=== PATIENT | female | born 1950 | race Caucasian/White ===

== ENCOUNTER 2019-05-12 19:14 | Emergency (ER) | payer OTHER ==
[2019-05-12] MEDS ORDERED: TETRACAINE 0.5% OPTH 5 ML BOTTLE ONE (19:45)
[2019-05-12] MEDS ORDERED: DIPH,PERTUSS(ACELL),TET VAC/PF 0.5 ML DISP.SYRIN IM ONE (19:45)
[2019-05-12] MEDS ORDERED: FLUORESCEIN SODIUM 1 STRIP TEST ONE (19:45)
== END 2019-05-12 20:00 ==
LOC: ED 19:14
DX: H57.89 Other specified disorders of eye and adnexa (principal)
CPT/HCPCS: 90715; 99282

== ENCOUNTER 2019-06-12 14:00 | Emergency (ER) | payer OTHER ==
--- NOTE | 2019-06-12 14:21 | ED Physician Documentation ---
Upper Extremity Problem - HISTORIAN Historian: patient - HPI Stated Complaint: neck pain and left arm, left back, left leg (chronic) Chief Complaint: General Adult Onset: other (chonic ) Recent Injury: No Where: home Severity: severe (05/10) Associated Symptoms: denies: fever, chills, sweating, shortness of breath, difficulty breathing, chest pain Exacerbated By: nothing Relieved By: nothing Quality: pain Further Comments: yes (she reports in 2010 she was in a work accident and she has been dealing with workmans comp on this arm/neck/back pain she is currenty not under treatment due to they are not paying and she is currently arguing with this company) - ROS CONST: no problems EYES/ENT: none CVS/RESP: none GI/: none MS/SKIN/LYMPH: joint pain NEURO/PSYCH: anxiety - PAST HX Past History: cervical disc disease Home Medications: Ambulatory Orders Medication Instructions Recorded Clonidine HCl [Catapres] 0.1 mg PO HS 06/12/19 Fluoxetine HCl [Prozac] 30 mg PO DAILY 06/12/19 Levothyroxine Sodium [Synthroid] 100 mcg PO DAILY 06/12/19 Methocarbamol [Robaxin-750] 750 mg PO BID 06/12/19 clonazePAM [Klonopin] 0.5 mg PO QID 06/12/19 - SOCIAL HX Smoking History: cigarettes Alcohol Use: occasionally Drug Use: marijuana - FAMILY HX Family History: none - REVIEWED ASSESSMENTS Nursing Assessment Reviewed: Yes Vitals Reviewed: Yes ED Results Lab/Radiology - Orders Orders: ED Orders Category Date Time Status UDS [DRUG SCREEN URINE MEDICAL ONLY] Routine Lab 06/12/19 Ordered Orphenadrine Citrate [Norflex] Med 06/12/19 15:04 Once 60 mg IM NOW ONE Upper Extremity Problem - EXAM General Appearance: no acute distress, alert Skin: warm/dry, normal color Shoulder Exam: normal inspection, non-tender, no evidence of injury, normal ROM Elbow/Forearm Exam: normal inspection, non-tender, no evidence of injury, normal ROM Wrist Exam: normal inspection, non-tender, no evidence of injury, normal ROM Hand Exam: normal inspection, non-tender, no evidence of injury, normal ROM EENT: eye inspection normal, ENT inspection normal, no signs of dehydration CVS: reg rate & rhythm, heart sounds normal, equal pulses, no murmur Vascular: no vascular compromise Peripheral: sensation nml, motor nml Central: oriented X3, CN's nml as tested, motor nml, sensation nml, mood/affect nml, cognition normal Respiratory: no resp. distress, breath sounds nml Abdomen: non-tender Discharge Clincal Impression: Neck pain, chronic Referrals: Primary Doctor,No [Primary Care Provider] - 2 Days Comments: She is dealing with her workman's comp for pain management referral DG Condition: Stable Disposition: 01 HOME, SELF-CARE Decision to Admit: NO Date of Decison to Admit: 06/12/19 Decision Time: 15:06
[2019-06-12] MEDS: ORPHENADRINE CITRATE 60 MG/2 ML ML IM ONE (15:08)
[2019-06-12 16:03] VITALS: BP 118/61
[2019-06-12 17:25] LABS: CANNABINOIDS NEGATIVE ng/mL (< 50); METHYLENEDIOXYMETHAMPHETAMINE NEGATIVE ng/mL (<500)
== END 2019-06-12 15:22 | disposition home or self-care (01) ==
LOC: ED 14:00
DX: G89.29 Other chronic pain (principal); M54.2 Cervicalgia
CPT/HCPCS: 80377; 96372; 99282; 99284; G0481; J2360

== ENCOUNTER 2019-06-17 13:04 | Emergency (ER) | payer OTHER ==
--- NOTE | 2019-06-17 13:39 | ED Physician Documentation ---
General Adult - HISTORIAN Historian: patient - HPI Stated Complaint: acute/chronic L sided neck/arm pain Chief Complaint: General Adult Timing: worse Severity: moderate Further Comments: yes (Pt is a 68 yo female with chronic L-sided neck pain, L arm pain, numbness after a workplace accident in 2010 when a several hundred pound object fell on her. Pt is rx'd Nabumatone 750 mg and Robaxin 750 mg. She took last doses at 3 am today.) - ROS CONST: no problems EYES/ENT: none CVS/RESP: none GI/: none MS/SKIN/LYMPH: other (L-sided neck/arm pain) - PAST HX Past History: other (anxiety/depression; chronic pain; thyroid d/o; ) Surgeries/Procedures: other (hysterectomy & oophorectomy; c-3 repair; R knee; R elbow; L trigger finger; ortho surg.) Allergies/Adverse Reactions: Allergies Allergy/AdvReac Type Severity Reaction Status Date / Time gabapentin Allergy Verified 06/12/19 15:05 Penicillins Allergy Verified 06/12/19 15:05 duloxetine [From Cymbalta] AdvReac Hallucinati Verified 06/12/19 15:05 ons lorazepam [From Ativan] AdvReac No Reaction Verified 06/17/19 13:21 steroids Allergy Rash Uncoded 06/17/19 13:21 Home Medications: Ambulatory Orders Medication Instructions Recorded Clonidine HCl [Catapres] 0.3 mg PO HS 06/12/19 Fluoxetine HCl [Prozac] 30 mg PO DAILY 06/12/19 Levothyroxine Sodium [Synthroid] 100 mcg PO DAILY 06/12/19 Nabumetone [Relafen] 750 mg PO BID 06/12/19 clonazePAM [Klonopin] 0.5 mg PO 5XDAY 06/12/19 Cyclobenzaprine HCl [Flexeril] 10 mg PO TID PRN 06/17/19 Naproxen Sodium [All Day Relief] 440 mg PO Q6H 06/17/19 - SOCIAL HX Smoking History: cigarettes - FAMILY HX Family History: No - VITAL SIGNS Vital Signs: Vital Signs Temp Pulse Resp BP Pulse Ox 118/61 06/12/19 15:59 - REVIEWED ASSESSMENTS Nursing Assessment Reviewed: Yes Vitals Reviewed: Yes Progress - Results/Orders Results/Orders: diazepam 5 mg IM some improvement ED Results Lab/Radiology - Orders Orders: ED Orders Category Date Time Status diazePAM [Valium] Med 06/17/19 13:35 Once 5 mg IM NOW ONE General Adult Physical Exam - PHYSICAL EXAM GENERAL APPEARANCE: mild distress EENT: pharynx normal NECK: normal inspection, supple, other (muscle spasm L neck) ABDOMEN: soft, no organomegaly, normal bowel sounds BACK: normal inspection, no CVA tenderness SKIN: warm/dry, normal color EXTREMITIES: non-tender, normal range of motion, no evidence of injury NEURO: oriented X3, motor nml, sensation nml Discharge Clincal Impression: musculoskeletal pain, muscle spasm Referrals: Primary Doctor,No [Primary Care Provider] - Condition: Stable Disposition: 01 HOME, SELF-CARE Decision to Admit: NO Decision Time: 14:32
[2019-06-17 14:50] VITALS: BP 112/64
== END 2019-06-17 14:38 | disposition home or self-care (01) ==
LOC: ED 13:04
DX: M62.838 Other muscle spasm (principal)
CPT/HCPCS: 96372; 99282; 99284; J3360

== ENCOUNTER 2019-06-22 09:29 | Outpatient (CLI) | payer OTHER ==
--- NOTE | 2019-06-22 19:45 | Diagnostic Imaging Report ---
PATIENT MR#: [id number] PATIENT PATIENT NAME: LAQUITA WHITE DATE OF : 1950 REFERRING PHYSICIAN: Ginny Kelley EXAM DATE: 06/22/2019 ACCESSION NUMBER: [id number] EXAM DESCRIPTION: ELBOW 2 VIEWS CLINICAL HISTORY: PAIN IN LEFT ELBOW X3 WEEKS COMPARISON: No study for comparison is available at the time of interpretation. TECHNIQUE: DX left elbow, 2 views Osseous structures: The osseous structures are normal with no evidence of fracture or dislocation. Th ere is no osseous lesion or periosteal reaction. Joint spaces: The bones are well aligned. No articular surface abnormality is noted. Soft tissues: There is normal appearance of the soft tissues with no radiopaque foreign body seen. IMPRESSION: Normal left elbow radiographs. Read by: Dr. Jovani Mccarty Transcribed by: Jovani Mccarty Transcribed Date: 06/22/2019 7:44:13 PM Electronically signed by: Dr. Jovani Mccarty Date signed: 06/22/2019 7:44:13 PM
--- NOTE | 2019-06-22 19:48 | Diagnostic Imaging Report ---
PATIENT MR#: [id number] PATIENT PATIENT NAME: LAQUITA WHITE DATE OF : 1950 REFERRING PHYSICIAN: Ginny Kelley EXAM DATE: 06/22/2019 ACCESSION NUMBER: [id number] EXAM DESCRIPTION: SHOULDER 2 VIEWS OR MORE CLINICAL HISTORY: PAIN IN LEFT SHOULDER X3 WEEKS. COMPARISON: No study for comparison is available at the time of interpretation. TECHNIQUE: DX left shoulder, 3 views Osseous structures: The osseous structures are normal with no evidence of fracture or dislocation. Th ere is no osseous lesion or periosteal reaction. Joint spaces: The bones are well aligned. There are moderate degenerative changes of the glenohumeral articulation, with subcortical cyst formation of the inferior glenoid. Mild AC joint arthrosis. Soft tissues: There is normal appearance of the soft tissues with no radiopaque foreign body seen. IMPRESSION: 1. Degenerative changes of the inferior glenohumeral joint, with subcortical cyst formation. 2. Mild AC joint arthrosis. Read by: Dr. Jovani Mccarty Transcribed by: Jovani Mccarty Transcribed Date: 06/22/2019 7:47:46 PM Electronically signed by: Dr. Jovani Mccarty Date signed: 06/22/2019 7:47:46 PM
--- NOTE | 2019-06-22 20:16 | Diagnostic Imaging Report ---
PATIENT MR#: [id number] PATIENT PATIENT NAME: LAQUITA WHITE DATE OF : 1950 REFERRING PHYSICIAN: Ginny Kelley EXAM DATE: 06/22/2019 ACCESSION NUMBER: [id number] EXAM DESCRIPTION: C SPINE 2 OR 3 VIEWS HISTORY: NECK PAIN X3 WEEKS, PT STATES NO RECENT INJURY, PT STATES HX OF OLD NECK INJURY COMPARISON: No relevant comparison is available at the time of interpretation. C-SPINE XRAY, 4 views: Vertebral bodies: C3-4 ACDF with intact hardware. C4-5 decompression laminectomy. No compression defo rmities. The dens is intact and the lateral masses are symmetric. Disc spaces: C3-4 interbody fusion. C5-6 and C6-7 moderate degenerative disc disease. Alignment: Straightening of the normal cervical lordosis. Minimal grade 1 anterolisthesis of C4 over C5. IMPRESSION: 1. C3-4 ACDF. C4-5 laminectomy. 2. Straightening of the normal lordosis with minimal grade 1 anterolisthesis of C4. 3. Multilevel degenerative disc disease, moderate at C5-6 and C6-7. Read by: Dr. Jovani Mccarty Transcribed by: Jovani Mccarty Transcribed Date: 06/22/2019 8:14:57 PM Electronically signed by: Dr. Jovani Mccarty Date signed: 06/22/2019 8:15:28 PM
== END 2019-06-22 09:39 ==
LOC: RAD 09:29
PROVIDERS: ATTEND Nurse Practitioner Family
DX: M54.2 Cervicalgia (principal); M25.512 Pain in left shoulder; M25.522 Pain in left elbow
CPT/HCPCS: 72040; 73030; 73070